=== PATIENT | female | born 2000 | race Caucasian/White ===

== ENCOUNTER 2023-06-26 22:10 | Emergency (ER) | payer OTHER ==
[2023-06-26 22:18] VITALS: BP 121/61; PULSE 82; RESP 20; TEMP 98.2; BMI 27.4
[2023-06-27] MEDS ORDERED: ACETAMINOPHEN 325 MG TABLET (FP) ONE (00:12)
[2023-06-27] MEDS ORDERED: DIPHTH,PERTUSS(ACELL),TET 0.5 ML DISP.SYRIN IM ONE (00:13)
[2023-06-27] MEDS ORDERED: CEPHALEXIN MONOHYDRATE 500 MG CAPSULE (UD) ONE (00:13)
[2023-06-27] MEDS: DIPHTH,PERTUSS(ACELL),TET 0.5 ML DISP.SYRIN IM ONE (00:27)
[2023-06-27] MEDS: CEPHALEXIN MONOHYDRATE 500 MG CAPSULE (UD) PO ONE (00:27)
[2023-06-27] MEDS: ACETAMINOPHEN 500 MG TABLET (FP) PO ONE (00:28)
== END 2023-06-27 00:28 | disposition home or self-care (01) ==
LOC: JER 22:10
PROC: 0HQGXZZ Repair Left Hand Skin, External Approach (ICD-10-PCS; principal; 2023-06-26)
PROC: 3E0234Z Introduction of Serum, Toxoid and Vaccine into Muscle, Percutaneous Approach (ICD-10-PCS; 2023-06-27)
DX: S61.412A Laceration without foreign body of left hand, initial encounter (principal); W26.8XXA Contact with other sharp object(s), not elsewhere classified, initial encounter
CPT/HCPCS: 12001-25; 90471; 90715; 99283-25

== ENCOUNTER 2024-06-20 14:57 | Emergency (ER) | payer SELFPAY ==
[2024-06-20 15:18] VITALS: BP 125/70; PULSE 101; RESP 16; TEMP 98.4; BMI 26.6
[2024-06-20 16:50] LABS: BASO % 0.2 % (0-2.0); EOS % 0.7 % (0-4.5); HEMATOCRIT 36.9 % (32.4-45.2); HEMOGLOBIN 11.8 GM/dL (10.7-15.3); LYMPH % 16.6 % (8-40); MCH 28.5 pg (25.7-33.7); MCHC 31.9 g/dl (32.0-36.0); MEAN CELL VOLUME 89.2 fl (80-96); MEAN PLT VOLUME 8.5 fl (7.5-11.1); MONO % 6.4 % (3.8-10.2); NEUT % 76.1 % (42.8-82.8); PLATELET COUNT 296 10^3/uL (134-434); RBC 4.14 M/mm3 (3.60-5.2); RDW 15.6 % (11.6-15.6); WHITE BLOOD COUNT 11.9 K/mm3 (4.0-10.0)
[2024-06-20 17:09] LABS: POTASSIUM 4.5 mmol/L (3.5-5.1)
[2024-06-20 17:11] LABS: CALCIUM 9.5 mg/dL (8.5-10.1)
[2024-06-20 17:12] LABS: ALBUMIN 3.7 g/dl (3.4-5.0); BLOOD UREA NITROGEN 10.3 mg/dL (7-18)
[2024-06-20 17:15] LABS: CREATININE 0.9 mg/dL (0.55-1.3)
[2024-06-20 17:16] LABS: BILIRUBIN,TOTAL 0.4 mg/dL (0.2-1); TOT PROT 6.9 g/dl (6.4-8.2)
[2024-06-20 17:49] LABS: URINE APPEARANCE CLOUDY; URINE BILIRUBIN NEGATIVE (NEGATIVE); URINE COLOR YELLOW; URINE GLUCOSE (UA) NEGATIVE (NEGATIVE); URINE KETONE TRACE (NEGATIVE); URINE LEUK ESTERASE NEGATIVE (NEGATIVE); URINE NITRITE NEGATIVE (NEGATIVE); URINE PROTEIN NEGATIVE (NEGATIVE)
[2024-06-20 18:08] LABS: HIV INTERPRETATION NEGATIVE (NEGATIVE)
== END 2024-06-20 21:25 | disposition home or self-care (01) ==
LOC: JER 14:57
DX: O26.891 Other specified pregnancy related conditions, first trimester (principal); R10.2 Pelvic and perineal pain; Z3A.01 Less than 8 weeks gestation of pregnancy
CPT/HCPCS: 36415; 76830-TC; 80053; 81003; 84702; 84703; 85025; 86803; 87086; 87389; 99284-25

== ENCOUNTER 2024-06-22 17:43 | Emergency (ER) | payer OTHER ==
[2024-06-22 17:52] VITALS: BP 118/67; PULSE 95; RESP 18; TEMP 98.1; BMI 22.8
== END 2024-06-22 20:17 | disposition home or self-care (01) ==
LOC: JER 17:43 → JERFT 17:43
DX: O26.891 Other specified pregnancy related conditions, first trimester (principal); R10.2 Pelvic and perineal pain; Z3A.01 Less than 8 weeks gestation of pregnancy
CPT/HCPCS: 36415; 84702; 99283-25